=== PATIENT | male | born 1975 | race Caucasian/White ===

== ENCOUNTER 2017-07-17 15:41 | Emergency (ER) | payer OTHER ==
[~2017-07-17] VITALS: Ht 182.9 cm; Wt 88.1 kg
[2017-07-17 15:51] VITALS: Ht 182.9 cm; Wt 88.1 kg
[2017-07-17] MEDS ORDERED: LORAZEPAM 1 MG TAB PO ONE (16:30)
[2017-07-17] MEDS ORDERED: IBUPROFEN 600 MG TAB PO ONE (16:30)
[2017-07-17] MEDS ORDERED: LIDOCAINE 1% (MDV) 20 ML INJ SC ONE (16:30)
--- NOTE | 2017-07-17 18:16 | RADRPT ---
PROCEDURE: XR Hand. CLINICAL INDICATION: Pain . Laceration TECHNIQUE: AP, oblique and lateral views of the left hand were obtained. COMPARISON: No prior studies are available for comparison. FINDINGS: Three views of the left hand demonstrate no displaced fracture. No gross malalignment is seen. The re is no significant degenerative change. Bones are normally mineralized. There are two 2 mm subc utaneous foreign body embedded in the site of the laceration. Associated soft tissue swelling is see n IMPRESSION: No acute fracture dislocation. Laceration along the medial side of the index finger. There are at least 2 approximately 2 mm radiop aque foreign bodies in the subcutaneous tissues RPTAT: HH .Eduardo Darden MD, Date Time Electronically viewed and signed by .Eduardo Darden MD, MD on 07/17/2017 18:15 .W/
[2017-07-17] MEDS ORDERED: CEPH-443 PO (18:41)
--- NOTE | 2017-07-17 21:26 | ERD ---
ER Documentation Chief Complaint Chief Complaint Complains of laceration to the index finger today (VITA RANDALL PA-C) HPI This patient is a 41-year-old male with past medical history of anxiety presenting to the emergency department with complaints of laceration to his left index finger while working today with wood. The patient was using a table saw and accidentally jammed a piece of wood into his left index finger cutting it and causing pain. Pain is constant, worse with movement, 8 out of 10 on the pain scale. This was an accidental injury. The patient's tetanus is up-to- date. He denies fevers, chills, or other injuries or symptoms at this time. (VITA RANDALL PA-C) ROS All systems reviewed and are negative except as per history of present illness. (VITA RANDALL PA-C) Medications Home Meds Active Scripts Cephalexin* (Keflex*) 500 Mg Capsule, 500 MG PO QID for 7 Days, #28 CAP Prov:VITA RANDALL PA-C 07/17/17 Allergies Allergies: Coded Allergies: sulfacetamide (Verified Allergy, Intermediate, 07/17/17) PMhx/Soc Medical and Surgical Hx: pt denies Medical Hx, pt denies Surgical Hx Hx Alcohol Use: No Hx Substance Use: No Hx Tobacco Use: No Smoking Status: Never smoker (VITA RANDALL PA-C) Physical Exam Vitals Vital Signs Date Time Temp Pulse Resp B/P Pulse Ox O2 Delivery O2 Flow Rate FiO2 07/17/17 15:51 98.0 64 20 126/69 98 (SUKHI OLIVEROS MD) Physical Exam Const: Nontoxic, well-appearing male in mild distress secondary to pain. Head: Atraumatic Eyes: Normal Conjunctiva ENT: Normal External Ears, Nose and Mouth. Skin: No petechiae or rashes Ext: No cyanosis, or edema. The patient has approximate 5 cm laceration to the medial aspect of his left index finger. No evidence of foreign body visualized. There is no evidence of involvement of tendons or ligaments to the left index finger. Strength and sensation was intact. Neur: Awake and alert Psych: Normal Mood and Affect (VITA RANDALL PA-C) Results 24 hrs Current Medications Medications (Trade) Dose Ordered Sig/Karolyn Route PRN Reason Start Time Stop Time Status Last Admin Dose Admin Lorazepam (Ativan) 1 mg ONCE ONCE PO 07/17/17 16:30 12 16:31 DC 07/17/17 16:40 Ibuprofen (Motrin) 600 mg ONCE ONCE PO 07/17/17 16:30 12 16:31 DC 07/17/17 16:40 Lidocaine (Xylocaine 1% (Mdv) 20 ml) 20 ml ONCE ONCE SC 07/17/17 16:30 07/17/17 16:31 DC (SUKHI OLIVEROS MD) Procedures/MDM Very pleasant 41-year-old male presents to the emergency department with complaints of laceration to left index finger. Physical examination did show an approximate 5 cm laceration to the medial side of the left index finger with no evidence of involvement of ligaments or tendons. Strength is intact. Sensation is intact. The patient was transferred [place] where the wound was deeply irrigated and explored for foreign body. None was visualized. Verbal consent was obtained for laceration repair. Initially, the wound was bleeding significantly and required a tourniquet to the proximal end of the left index finger to achieve temporary hemostasis while the laceration was repaired. It was indicated to repair the laceration right away as bleeding was significant. 14 sutures were placed successfully without incident. The patient tolerated the procedure well. See procedure note below. X-ray imaging was obtained which did show small foreign bodies along the medial side of the finger. I had a discussion with attending ED physician, Dr. Sukhi Oliveros, regarding this patient's case, and he did recommend speaking to the patient about following up with a hand surgeon within the next 48 hours for exploration and removal of the foreign bodies, or having the sutures removed here for foreign body exploration. Removing the Sutures here and exploring for foreign body had risks which included, but were not limited to deep tissue infection, tendon or ligamental disruption, inability to remove the foreign body , and others. I had a long discussion with the patient regarding the options, and after contemplation, he decided he would follow-up with a hand surgeon within the next 48 hours. The patient was given information to follow-up at the [facility] hand clinic within 48 hours. He is to return immediately for any new or worsening symptoms. Laceration Repair by me with assistance from RICKY Ortega from [facility] Anesthesia: 1% lidocaine locally, digital block Location: left index finger, medial side Tendon/Joint/Nerves: No injury Foreign body: None detected after copious irrigation and exploration Technique: 14 Simple Interrupted Sutures using 3-0 prolene. Complexity: No subcutaneous sutures/mucosal repair/ edge excision Post Closure Length: 5 cm Patient's bleeding was easily controlled in the department and there is no indication of anemia. No evidence of compartment syndrome, neurologic injury, vascular injury, open joint, tendon laceration, or foreign body. Patient is appropriate for outpatient follow up. 48 hour wound check. Scar minimization instructions given. PROCEDURE: XR Hand. CLINICAL INDICATION: Pain . Laceration TECHNIQUE: AP, oblique and lateral views of the left hand were obtained. COMPARISON: No prior studies are available for comparison. FINDINGS: Three views of the left hand demonstrate no displaced fracture. No gross malalignment is seen. There is no significant degenerative change. Bones are normally mineralized. There are two 2 mm subcutaneous foreign body embedded in the site of the laceration. Associated soft tissue swelling is seen IMPRESSION: No acute fracture dislocation. Laceration along the medial side of the index finger. There are at least 2 approximately 2 mm radiopaque foreign bodies in the subcutaneous tissues RPTAT: HH .Eduardo Darden MD, MD Date Time Electronically viewed and signed by .Eduardo Darden MD, MD on 07/17/2017 18:15 (VITA RANDALL PA-C) Attending addendum: I reviewed the images on the patient's x-ray and I do see evidence of a retained foreign body. I did not examine the patient, as I was informed that he had already had his laceration sutured, but I was informed that there is not concerned for tendon injury, neurovascular injury, or open joint. I advised giving the patient an option for suture removal and expiration of the wound under tourniquet in the ER and an attempt to remove the foreign body versus discharge on antibiotics with close follow-up with a hand surgeon in the next 2 days for delayed exploration at surgeon's discretion. (SUKHI OLIVEROS MD) Departure Diagnosis: Primary Impression: Laceration of finger with foreign body without damage to nail Encounter type: initial encounter Finger: index finger Laterality: left Qualified Code: S61.221A - Laceration of left index finger with foreign body without damage to nail, initial encounter Additional Impression: Laceration Condition: Fair Patient Instructions: Laceration, Hand Referrals: [facility] YOU HAVE RECEIVED A MEDICAL SCREENING EXAM AND THE RESULTS INDICATE THAT YOU DO NOT HAVE A CONDITION THAT REQUIRES URGENT TREATMENT IN THE EMERGENCY DEPARTMENT. FURTHER EVALUATION AND TREATMENT OF YOUR CONDITION CAN WAIT UNTIL YOU ARE SEEN IN YOUR DOCTORS OFFICE WITHIN THE NEXT 1-2 DAYS. IT IS YOUR RESPONSIBILITY TO MAKE AN APPOINTMENT FOR FOLOW-UP CARE. IF YOU HAVE A PRIMARY DOCTOR --you should call your primary doctor and schedule and appointment IF YOU DO NOT HAVE A PRIMARY DOCTOR YOU CAN CALL OUR PHYSICIAN REFERRAL HOTLINE AT . IF YOU CAN NOT AFFORD TO SEE A PHYSICIAN YOU CAN CHOSE FROM THE FOLLOWING [facility] INSTITUTIONS: [facility] [id number] [place] [address] [facility] [address] [place] [address] [facility] [address] [place] [address] [facility] Additional Instructions: You must see a hand surgeon within the next 48 hours. Use information provided to follow up. Call your primary care doctor TOMORROW for an appointment during the next 1-2 days.See the doctor sooner or return here if your condition worsens before your appointment time. VITA RANDALL PA-C Jul 17, 2017 21:17 SUKHI OLIVEROS MD Jul 18, 2017 00:40
== END 2017-07-17 18:53 | disposition home or self-care (01) ==
LOC: FTE 15:41
DX: S61.221A Laceration with foreign body of left index finger without damage to nail, initial encounter (principal); W45.8XXA Other foreign body or object entering through skin, initial encounter; Y92.9 Unspecified place or not applicable
CPT/HCPCS: 12032; 73130; Z7502; Z7610

== ENCOUNTER 2017-08-06 08:28 | Day surgery (SDC) | END 2017-08-06 13:55 | disposition home or self-care (01) ==